=== PATIENT | female | born 1970 | race Caucasian/White ===

== ENCOUNTER 2016-08-17 11:26 | Emergency (ER) | payer OTHER ==
[~2016-08-17] VITALS: Ht 172.7 cm; Wt 86.8 kg
[~2016-08-17 11:26] MED LIST: DOCU-94 PO; PSYL55.43 PO; TOPI200T6 PO
[2016-08-17 11:33] VITALS: TEMP 36.8; Ht 172.7 cm; Wt 86.8 kg
--- NOTE | 2016-08-17 13:07 | EMERGENCY ROOM VISIT NOTE ---
ED Visit Note First contact with patient: 12:26 CHIEF COMPLAINT: Left thumb laceration HISTORY OF PRESENT ILLNESS: This 46-year-old female presents to ER with chief complaint of a laceration to her left thumb which occurred this morning when she accidentally cut into it with a knife. The patient states that the bleeding has stopped. The patient denies any numbness and tingling in her finger. The patient is unsure of her tetanus status. REVIEW OF SYSTEMS: 6 system review was performed and was negative unless stated otherwise in history of present illness. PMH: The patient is healthy; there is no significant medical or surgical history. SOCIAL HISTORY: Patient lives with her boyfriend. The patient denies any tobacco or alcohol use. PHYSICAL EXAM: Vital Signs: Were reviewed Reviewed Nurse's notes. GENERAL: 46- year-old white female appears in no acute distress. MENTAL Status: Alert and oriented 3. LEFT THUMB: There is a 8 mm superficial laceration on the palmar aspect of the proximal phalanx without any active bleeding. The wound looks clean. The edges come minimally apart with traction. EMERGENCY DEPARTMENT COURSE: The patient was evaluated. Adacel was given. The wound was cleansed with saline 3. The wound was dried and Dermabond applied. The patient was discharged home in stable condition. DIAGNOSIS: 8 mm left thumb laceration DISCHARGE INSTRUCTIONS & TREATMENT: Follow skin glue instructions. Any signs of infection, follow-up with your family doctor. Problem List Medical Problems: (1) Benign hypertension Status: Chronic (2) Seizure disorder Status: Chronic Current/Historical Medications Scheduled Topiramate (Topamax), 200 MG PO AMPM Scheduled PRN Docusate Sodium (Colace), 3 CAP PO BID PRN for Constipation Psyllium (Metamucil Powder), 1 PACK PO BID PRN for Constipation Allergies Coded Allergies: No Known Allergies (Verified , 08/17/16) Vital Signs Date Time Temp Pulse Resp B/P Pulse Ox O2 Delivery O2 Flow Rate FiO2 08/17/16 11:33 36.8 91 18 120/83 98 Room Air Departure Information Referrals Poli Strong M.D. (PCP) Patient Instructions A Signature Page, My [facility]
[2016-08-17] MEDS ORDERED: DIPHTHERIA/TETANUS/PERTUSSIS 0.5 ML SYR/VIAL IM. ONE (13:15)
[2016-08-17 13:19] VITALS: BP 122/81; PULSE 89; O2SAT 97
== END 2016-08-17 13:20 | disposition home or self-care (01) ==
LOC: C.EDB 11:27 → C.EDD 13:20
DX: S61.012A Laceration without foreign body of left thumb without damage to nail, initial encounter (principal); I10 Essential (primary) hypertension; W26.0XXA Contact with knife, initial encounter

== ENCOUNTER → 2016-08-27 | Outpatient (CLI) | payer OTHER ==
--- NOTE | 2016-08-27 13:59 | DIAGNOSTIC IMAGING REPORT ---
LEFT HIP UNILATERAL 2 VIEWS CLINICAL HISTORY: Left groin pain. COMPARISON: None FINDINGS: Alignment of the left hip is anatomic. There is no fracture or or suspicious lesion. There is no evidence of avascular necrosis of the left femoral head. Joint space is preserved. There is no significant osteophytosis. IMPRESSION: No significant abnormality of the left hip. Electronically signed by: Rahul Ayala M.D. 08/27/2016 1:58 PM Dictated Date/Time: 08/27/2016 1:57 PM
== END | disposition home or self-care (01) ==
LOC: C.RAD1850 13:43
PROVIDERS: ATTEND Nurse Practitioner
DX: R10.30 Lower abdominal pain, unspecified (principal)

== ENCOUNTER → 2016-11-24 | Outpatient (CLI) | payer OTHER ==
--- NOTE | 2016-11-25 12:47 | MAMMOGRAPHY REPORT ---
BILATERAL DIGITAL SCREENING MAMMOGRAM TOMOSYNTHESIS WITH CAD: 11/24/2016 CLINICAL HISTORY: Routine screening. Patient has no complaints. TECHNIQUE: Breast tomosynthesis in addition to standard 2D mammography was performed. Current study was also evaluated with a Computer Aided Detection (CAD) system. COMPARISON: Comparison is made to exams dated: 10/11/2015 mammogram, 10/05/2014 mammogram, 09/22/2013 m ammogram, 09/15/2011 mammogram, 09/11/2010 mammogram, and 09/10/2009 mammogram - [facility]. BREAST COMPOSITION: There are scattered areas of fibroglandular density in both breasts. FINDINGS: There is a stable benign-appearing coarse calcification in the right breast. No suspiciou s mass, architectural distortion or cluster of suspicious microcalcifications is seen. IMPRESSION: ACR BI-RADS CATEGORY 1: NEGATIVE There is no mammographic evidence of malignancy. A 1 year screening mammogram is recommended. The p atient will receive written notification of the results. Approximately 10% of breast cancers are not detected with mammography. A negative mammographic repor t should not delay biopsy if a clinically suggestive mass is present. Carlita Gold M.D. ay/:11/25/2016 07:07:24 Selvage Machine Operator: Ashlee ESPINOZA(R)(M), [facility] letter sent: Normal 1/2 BI-RADS Code: ACR BI-RADS Category 1: Negative
== END | disposition home or self-care (01) ==
LOC: C.MAMM 15:13
PROVIDERS: ATTEND Obstetrics & Gynecology
DX: Z12.31 Encounter for screening mammogram for malignant neoplasm of breast (principal)

== ENCOUNTER 2017-09-12 07:47 | Emergency (ER) | payer OTHER ==
[~2017-09-12] VITALS: Ht 172.7 cm; Wt 85.0 kg
[2017-09-12 07:51] VITALS: BP 137/84; PULSE 121; TEMP 36.5; O2SAT 99; Ht 172.7 cm; Wt 85.0 kg
[2017-09-12] MEDS ORDERED: AMOX875T PO (08:13)
[2017-09-12] MEDS ORDERED: FAMO20TA11 PO (08:19)
--- NOTE | 2017-09-12 15:55 | EMERGENCY ROOM VISIT NOTE ---
History First contact with patient: 07:58 Chief Complaint: EAR PAIN Stated Complaint: EARS THROAT History of Present Illness The patient is a 47 year old female who presents to the Emergency Room with complaints of persistent left earache and throat pain. The patient reports that she had symptoms develop 1 week ago. She was seen at a walk-in clinic and provided prescriptions for Ceftin, a steroid and famotidine. The patient reports that the medicines are not helping. She denies any significant cough, change in voice, runny nose or sinus congestion. The patient denies any prior history of recurrent ear infections. She rates her discomfort a 4 out of 10. Review of Systems 10 system review was performed and was negative except for pertinent positives and negatives as indicated in history of present illness Past Medical/Surgical History Medical Problems: (1) Benign hypertension (2) Seizure disorder Family History Blood clots Social History Smoking Status: Never Smoker Alcohol Use: none Drug Use: none Marital Status: single, in relationship Occupation Status: unemployed Current/Historical Medications Scheduled Amoxicillin & Pot Clavulanate (Augmentin 875-125 mg), 1 TAB PO BID Famotidine (Pepcid), 20 MG PO DAILY Topiramate (Topamax), 200 MG PO AMPM Physical Exam Vital Signs Date Time Temp Pulse Resp B/P (MAP) Pulse Ox O2 Delivery O2 Flow Rate FiO2 09/12/17 07:51 36.5 121 18 137/84 99 Room Air Physical Exam CONSTITUTIONAL: Healthy and well nourished. Alert and oriented X 3 with positive affect. Patient does not appear in any acute distress. HEENT: Normocephalic, atraumatic. Pupils equal, round and reactive. No facial edema noted. Examination of the right ear is normal. Examination of the left ear shows TM bulging without air-fluid levels. No peripheral erythema noted. OROPHARYNX: Minimal posterior frontal erythema without any tonsillar hypertrophy or exudates. Negative trismus. NECK: Full active range of motion without discomfort. No nuchal rigidity. LYMPHATICS: No cervical chain adenopathy noted. RESPIRATORY: Clear to auscultation bilaterally with no wheezing, crackles, rhonchi or stridor. CARDIOVASCULAR: Regular rate and rhythm with no murmurs, rubs or gallops. MUSCULOSKELETAL: Full range of motion of all joints without discomfort. INTEGUMENTARY: No rash or other significant dermatologic conditions noted. NEUROLOGIC: No focal neurologic deficits noted. Medical Decision & Procedures ED Course Patient history and physical exam were performed. Nurse's notes were reviewed. Vital signs were reviewed. At this point, I suggested that the patient follow up with ENT. The patient is concerned that there is something stuck in her throat. The patient requested an x-ray. She was advised that x-rays do not show soft tissue well, and that she would be best evaluated by ENT. She was instructed to call her PCP to see if she needs a referral. The patient was provided a prescription for Augmentin. He is welcome to return for any difficulty swallowing, shortness of breath, cough or developing fever. She was encouraged to take ibuprofen and Tylenol as needed for pain. The patient was happy with plan of care, and voiced understanding of all discharge instructions. Medical Decision Medication Reconcilliation Current Medication List: was personally reviewed by me Blood Pressure Screening Patient's blood pressure: Normal blood pressure Impression Primary Impression: Acute dysfunction of eustachian tube Departure Information Dispostion Home / Self-Care Prescriptions Amoxicillin & Pot Clavulanate (Augmentin 875-125 mg) 1 Tab Tab 1 TAB PO BID for 10 Days, #20 TAB Prov: Alex Davies PA 09/12/17 Forms HOME CARE DOCUMENTATION FORM, IMPORTANT VISIT INFORMATION Patient Instructions My [facility] Additional Instructions Complete all Augmentin antibiotics as prescribed. Ibuprofen 800 mg and/or Tylenol 1000 mg every 8 hours. You may also alternate these medications for more effective pain relief: Ibuprofen --4 HRS--> Tylenol --4 HRS--> ibuprofen --4 HRS--> Tylenol .... Follow-up with ENT (Dr. Mendes) for further reevaluation and management. Call the number on the back of your insurance card to see if you need a referral to a specialist. If you need a referral, call your family doctor for this referral. Problem Qualifiers Primary Impression: Acute dysfunction of eustachian tube Laterality: left Qualified Codes: H69.82 - Other specified disorders of eustachian tube, left ear
== END 2017-09-12 08:23 | disposition home or self-care (01) ==
LOC: C.EDB 07:50
DX: H69.82 Other specified disorders of Eustachian tube, left ear (principal); R07.0 Pain in throat; I10 Essential (primary) hypertension; G40.909 Epilepsy, unspecified, not intractable, without status epilepticus; Z82.49 Family history of ischemic heart disease and other diseases of the circulatory system

== ENCOUNTER → 2017-10-11 | Outpatient (CLI) | payer OTHER ==
[~2017-10-11] MED LIST changes: -DOCU-94 PO; +FAMO20TA11 PO; -PSYL55.43 PO
[2017-10-11 12:40] LABS: HEMATOCRIT 38.5 % (37-47); HEMOGLOBIN 13.7 g/dL (12.0-16.0); MEAN CELL VOLUME 85.2 fL (80-100); MEAN CORPUSCULAR HEMOGLOBIN 30.3 pg (25-34); MEAN CORPUSCULAR HGB CONC 35.6 g/dl (32-36); MEAN PLATELET VOLUME 11.4 fL (7.4-10.4); PLATELET COUNT 149 K/uL (130-400); RED CELL DISTRIBUTION WIDTH SD 40.4 fL (36.4-46.3); WHITE BLOOD COUNT 5.92 K/uL (4.8-10.8)
[2017-10-11 12:42] LABS: ALBUMIN 3.8 gm/dl (3.4-5.0); ALT/SGPT 26 U/L (12-78); BLOOD UREA NITROGEN 13 mg/dl (7-18); CALCIUM 9.6 mg/dl (8.5-10.1); CARBON DIOXIDE 25 mmol/L (21-32); CHOLESTEROL 180 mg/dl (0-200); CREATININE 0.78 mg/dl (0.60-1.20); GLUCOSE 80 mg/dl (70-99); POTASSIUM 3.6 mmol/L (3.5-5.1); SODIUM 140 mmol/L (136-145)
[2017-10-11 12:44] LABS: HEMOGLOBIN A1C 5.3 % (4.5-5.6)
[2017-10-11 12:46] LABS: ALKALINE PHOSPHATASE 60 U/L (45-117); AST/SGOT 19 U/L (15-37); LDL CHOLESTEROL CALCULATED 106 mg/dl; TOTAL PROTEIN 7.7 gm/dl (6.4-8.2)
== END | disposition home or self-care (01) ==
LOC: C.LABBFT 09:37
PROVIDERS: ATTEND Nurse Practitioner
DX: R73.01 Impaired fasting glucose (principal)

== ENCOUNTER 2017-11-20 14:13 | Emergency (ER) | payer OTHER ==
[~2017-11-20] VITALS: Ht 167.6 cm; Wt 85.0 kg
[~2017-11-20 14:13] MED LIST changes: -TOPI200T6 PO
[2017-11-20 14:16] VITALS: TEMP 36.5; Ht 167.6 cm; Wt 85.0 kg
[2017-11-20] MEDS ORDERED: CIPRO 0.2%/HYDROCORTISONE 1% OTIC SUSP 10 ML BTL OT STA (15:03)
[2017-11-20] MEDS ORDERED: AMOXICILLIN 500 MG CAP PO STA (15:03)
[2017-11-20] MEDS ORDERED: AMOX875T3 PO (15:22)
--- NOTE | 2017-11-20 15:24 | EMERGENCY ROOM VISIT NOTE ---
History First contact with patient: 14:53 Chief Complaint: EAR PAIN Stated Complaint: EARTS ITCHING History of Present Illness The patient is a 47 year old female who presents to the Emergency Room with complaints of severe ear pain and itching for the last several days. The patient wears hearing aids. She denies any injury to the ears. She denies any fever. She has not been taking anything [id number] for her discomfort. She denies any changes in hearing. No recent sore throat or sinus drainage. Review of Systems 6 system review negative. Please see pertinent positives in the history of present illness section. Past Medical/Surgical History Medical Problems: (1) Benign hypertension (2) Seizure disorder Family History Blood clots Social History Smoking Status: Never Smoker Alcohol Use: none Drug Use: none Marital Status: single, in relationship Occupation Status: unemployed Current/Historical Medications Scheduled Amoxicillin (Amoxil), 875 MG PO BID [place] Dextrin (Fiber Powder), 1 DOSE PO BID Nortriptyline (Pamelor), 10 MG PO HS Topiramate (Topamax), 200 MG PO AMPM Physical Exam Vital Signs Date Time Temp Pulse Resp B/P (MAP) Pulse Ox O2 Delivery O2 Flow Rate FiO2 11/20/17 15:33 94 18 114/68 98 Room Air 11/20/17 14:16 36.5 109 16 118/84 99 Room Air Physical Exam VITALS: Vitals are noted on the nurse's note and reviewed by myself. Vital signs stable. GENERAL: 47-year-old female, in no acute distress, nondiaphoretic, well- developed well-nourished. SKIN: The skin was without rashes, erythema, edema, or bruising. . HEAD: Normocephalic atraumatic. EARS: External auditory canals are erythematous and indurated bilaterally. Tympanic membranes are both bulging with effusion and erythematous left greater than right. The TMs are intact. NOSE: Patent, turbinates without inflammation or discharge. No sinus tenderness. MOUTH: Mucous membranes moist. Tonsils are not enlarged. Pharynx without erythema or exudate. Uvula midline. Airway patent. Tongue does not deviate. NECK: Supple without nuchal rigidity. Lymphadenopathy in anterior cervical chain bilaterally. No JVD. MUSCULOSKELETAL:. Strength 5/5 throughout. NEURO: Patient was alert and oriented to person place and time. Normal sensation to touch. No focal neurological deficits. Medical Decision & Procedures Medications Administered Medications (Trade) Dose Ordered Sig/Leanne Route Start Time Stop Time Status Last Admin Dose Admin Ciprofloxacin/ Hydrocortisone (Cipro Hc Otic Susp) 2 drops ONE STAT OT 11/20/17 15:03 11/20/17 15:05 DC 11/20/17 15:31 2 DROPS Amoxicillin (Amoxil Cap) 500 mg NOW STAT PO 11/20/17 15:03 11/20/17 15:05 DC 11/20/17 15:32 500 MG ED Course This patient was seen and examined She was given 1 dose of amoxicillin p.o. Cipro HC drops were applied to the ears bilaterally. Discharge instructions were reviewed, and she was discharged in good condition Medical Decision Differential diagnosis: Otitis media, otitis externa, TM perforation This patient is a 47-year-old female that presents to the emergency department with bilateral ear pain and itching for the last several days. On exam, she had otitis externa bilaterally. Her tympanic membrane, particularly the left, was significantly erythematous. The TMs were intact. , the patient will be covered for otitis externa with Cipro HC otic solution in addition to amoxicillin for otitis media. She was encouraged to try not to wear her hearing aids and keep her ears dry. She was in agreement. She will follow-up with Dr. Strong in the office next week for an ear recheck. She agrees to return with any worsening symptoms. This chart was completed in part utilizing [employer] Speech Voice Recognition software. Attempts were made to minimize the grammatical errors, random word insertions, pronoun errors and incomplete sentences. Any formal questions or concerns about the content, text or information contained within the body of this dictation should be directly addressed to the provider for clarification. Impression Primary Impression: Otitis externa Additional Impression: Otitis media Departure Information Dispostion Home / Self-Care Condition GOOD Prescriptions Amoxicillin (AMOXIL) 875 Mg Tab 875 MG PO BID, #20 TAB Prov: Ada Norton PA-C 11/20/17 Referrals Poli Strong M.D. (PCP) Patient Instructions My [facility] Additional Instructions You were evaluated in the emergency department for ear discomfort it appears that you have an infection. Please apply 2 drops to each ear twice daily for 7 days. Please DO NOT WEAR YOUR HEARING AIDS FOR AT LEAST 1 HOUR AFTER ADMINISTERING THE DROPS Please take the entire course of amoxicillin. Please take a probiotic or eat yogurt daily while on this medication. Try to keep ears dry. Follow-up with Dr. Strong later this week for a recheck You may take Tylenol 650 mg or ibuprofen 600 mg every 6 hours as needed for discomfort Please do not hesitate to return to the emergency department with any new or concerning symptoms It was a pleasure participating in your care today Problem Qualifiers
[2017-11-20] MEDS ORDERED: NORT10CA2 PO (15:32)
[2017-11-20] MEDS ORDERED: CORN1POW2 PO (15:32)
[2017-11-20 15:33] VITALS: BP 114/68; PULSE 94; O2SAT 98
[2017-11-20] MEDS ORDERED: TOPI200T6 PO (18:15)
== END 2017-11-20 15:35 | disposition home or self-care (01) ==
LOC: C.EDB 14:14 → C.EDD 15:35
DX: H60.93 Unspecified otitis externa, bilateral (principal); H66.93 Otitis media, unspecified, bilateral; I10 Essential (primary) hypertension; G40.909 Epilepsy, unspecified, not intractable, without status epilepticus

== ENCOUNTER → 2017-12-06 | Outpatient (CLI) | payer OTHER ==
[~2017-12-06] MED LIST changes: +CORN1POW2 PO; -FAMO20TA11 PO; +NORT10CA2 PO; +TOPI200T6 PO
--- NOTE | 2017-12-07 07:39 | MAMMOGRAPHY REPORT ---
BILATERAL DIGITAL SCREENING MAMMOGRAM TOMOSYNTHESIS WITH CAD: 12/06/2017 CLINICAL HISTORY: Routine screening. Patient has no complaints. TECHNIQUE: Breast tomosynthesis in addition to standard 2D mammography was performed. Current study was also evaluated with a Computer Aided Detection (CAD) system. COMPARISON: Comparison is made to exams dated: 11/24/2016 mammogram, 10/11/2015 mammogram, 10/05/2014 m ammogram, 09/22/2013 mammogram, 09/16/2012 mammogram, and 09/15/2011 mammogram - [facility]. BREAST COMPOSITION: There are scattered areas of fibroglandular density in both breasts. FINDINGS: No suspicious mass, architectural distortion or cluster of microcalcifications is seen. IMPRESSION: ACR BI-RADS CATEGORY 1: NEGATIVE There is no mammographic evidence of malignancy. A 1 year screening mammogram is recommended. The pa tient will receive written notification of the results. Approximately 10% of breast cancers are not detected with mammography. A negative mammographic report should not delay biopsy if a clinically suggestive mass is present. Carlita guaman/aleksandra:12/06/2017 16:17:10 Farm Facility Manager: Isabela ESPINOZA(R)(M), [facility] letter sent: Normal 1/2 BI-RADS Code: ACR BI-RADS Category 1: Negative
== END | disposition home or self-care (01) ==
LOC: C.MAMM 15:51
PROVIDERS: ATTEND Obstetrics & Gynecology
DX: Z12.31 Encounter for screening mammogram for malignant neoplasm of breast (principal)

== ENCOUNTER → 2017-12-06 | Outpatient (CLI) | payer OTHER | END | disposition home or self-care (01) | LOC: C.PAPS 09:52 | PROVIDERS: ATTEND Obstetrics & Gynecology | DX: Z12.4 Encounter for screening for malignant neoplasm of cervix (principal) ==

== ENCOUNTER 2020-01-31 07:39 | Observation (INO) ==
--- NOTE | 2020-01-29 14:26 | Anesthesiology Consultation ---
Date of Service January 29, 2020 Assessment & Plan (1) Encounter for pre-operative examination: Chart Review Chart Review: Acceptable Risk for Surgery and Patient NOT seen in Pre Admission Testing Per nursing assessment 01/29/20, no recent travel. 01/26/20 Covid testing= negative. Pt granddaughter does reside with patient and went to [place] over the weekend and came back 01/28/20- granddaughter did practice social distancing and wore mask.. It was discussed with Dr. Daniel- patient may proceed with surgery without additional testing. History Surgery Operation Date: 01/31/20 10:30 Proposed Procedures p Right Breast Lumpectomy with Needle Localization and with Right [place] Lymph Node Biopsy - Marin Osborne MD, FACS Height/Weight Height: 5 ft 9 in Weight: 95.254 kg Allergies Allergy/AdvReac Type Severity Reaction Status Date / Time No Known Allergies Allergy Verified 01/29/20 13:01 Medications Home Medications Medication Instructions Recorded Confirmed Last Taken docusate sodium 100 mg capsule 300 mg PO BID cap 03/08/19 01/29/20 Unknown topiramate 200 mg tablet 200 mg PO BID tab 04/02/19 01/29/20 Unknown nortriptyline 10 mg capsule 20 mg PO PM cap 01/25/20 01/29/20 Unknown multivitamin 1 tab PO QAM 01/29/20 01/29/20 Unknown psyllium husk [Fiber (psyllium 0.52 g PO QAM 01/29/20 01/29/20 Unknown husk)] Past Medical History Medical History Hearing deficit History of seizures LAST ONE 5 YRS AGO. EPILEPTIC> FOLLOWS DR. MEKA JONES WILL SEE AGAIN ON FEBRUARY 05 Lung nodule GETS CHECKED EVERY 6 MONTHS > FOLLOWS DR. TREVINO Past Family History Family History Mother Cancer Father Cardiac disorder Heart disease Denies family history of Ovarian cancer Prostate cancer Myocardial infarction Breast cancer Colorectal cancer Past Surgical History Surgical History History of colonoscopy History of hemorrhoidectomy History of tubal ligation Social History Smoking Status: Never smoker Do You Dip or Chew Tobacco: No Hx Alcohol Use: No Hx Substance Use: No substance use type: does not use Testing Laboratory Results Laboratory Tests 01/26/20 01/26/20 09:50 09:50 WBC 6.16 Hgb 14.6 Hct 43.3 Plt Count 165 Sodium 138 Potassium 3.7 Chloride 109 H Carbon Dioxide 25 BUN 11 Creatinine 0.84 Glucose 98 Electrocardiogram Date: 01/26/20 NSR with sinus arrhythmia at 91 bpm. Other Testing Chest CT 10/10/19= Several bilateral parenchymal nodules considered stable and unchanged compared to at least 2 prior studies. No new or interval findings. A 1 year follow-up is suggested.
[~2020-01-31 07:39] MED LIST changes: +CEFAZOLIN 2000MG 2,000 MG/15 ML SYR IV SCH; -CORN1POW2 PO; +LACTATED RINGER'S 1,000 ML IV SCH; -NORT10CA2 PO; -TOPI200T6 PO
--- NOTE | 2020-01-31 09:39 | Nuclear Medicine Report ---
LYMPHOSCINTIGRAPHY CLINICAL HISTORY: Right breast cancer. PROCEDURE: Using standard sterile technique, 4 intradermal periareolar and one deep injection of 0.51 7 mCi of Lymphoseek was placed in the right breast. The patient tolerated the procedure well. There w ere no immediate complications. The patient was subsequently transported to the surgical suite. No im aging was obtained at the referring physician's request. IMPRESSION: Injection of 0.517 mCi of Lymphoseek in the right breast. ACT 112: Negative or not required by law. Electronically signed by: Jignesh Zhong M.D. 01/31/2020 9:38 AM
[2020-01-31] MEDS ORDERED: ONDANSETRON INJ 2 MG/ML 2 ML VIAL ONE (09:52)
[2020-01-31] MEDS ORDERED: PROPOFOL IV EMULSION 10 MG/ML 20 ML VIAL IV ONE (09:52)
[2020-01-31] MEDS ORDERED: fentaNYL citrate 100 MCG/2 ML VIAL ONE (09:52)
[2020-01-31] MEDS ORDERED: LIDOCAINE HCL 2% 2 ML VIAL/AMP(20MG/ML) INFIL ONE (09:52)
[2020-01-31] MEDS ORDERED: DEXAMETHASONE SOD INJ 4 MG/ML VIAL ONE (09:52)
[2020-01-31] MEDS ORDERED: MIDAZOLAM HCL 1 MG/ML 2ML VIAL ONE (09:52)
[2020-01-31] MEDS ORDERED: fentaNYL citrate 100 MCG/2 ML VIAL IV PRN (09:55)
[2020-01-31] MEDS ORDERED: ePHEDrine sulfate 50 MG/ML AMP IV PRN (09:55)
[2020-01-31] MEDS ORDERED: ATROPINE SULFATE 0.1 MG/ML 10ML SYR IV PRN (09:55)
[2020-01-31] MEDS ORDERED: ONDANSETRON INJ 2 MG/ML 2 ML VIAL IV PRN ×2 (09:55→13:29)
--- NOTE | 2020-01-31 10:21 | History & Physical Bridge Note ---
Date of Service January 31, 2020 History & Physical Bridge Note I have examined the patient, reviewed the History & Physical and in the interval since the performance of the History & Physical I have noted the following changes of clinical significance: no changes noted
[2020-01-31] MEDS ORDERED: ISOSULFAN BLUE 10 MG/ML VIAL 5 ML ONE (10:43)
[2020-01-31] MEDS ORDERED: BUPIVACAINE 0.5 % 5 MG/1 ML MPF 30ML VIAL ONE (10:43)
[2020-01-31] MEDS ORDERED: METHYLENE BLUE 0.5% 10 ML VIAL ONE (10:43)
[2020-01-31] MEDS ORDERED: PHENYLEPHRINE 100MCG/ML 5ML SYR ONE (11:53)
--- NOTE | 2020-01-31 12:06 | Post Operative Brief Note ---
PG Immediate Post Op with CF Date of Surgery January 31, 2020 Pre & Post Diagnosis Operation Date: 01/31/20 10:30 Pre-Op Diagnosis: Right Breast DCIS Post-Op Diagnosis: Right Breast DCIS I identified the patient and participated in the time-out.: Yes Procedure Operation Date: 01/31/20 10:30 Actual Procedures p Right Breast Lumpectomy with Needle Localization and with Right [place] Lymph Node Biopsy(Right) - Marin Osborne MD, FACS Surgeon Marin Osborne MD, FACS Waste Salvager Kimberli Seals Estimated Blood Loss 5 Findings Consistent with Post-Op Diagnosis Specimens Specimen Description: #1. Right [place] Lymph Node A. Right breast tissue (removed from body at 1141)- wire is inferior, long silk is lateral, short silk is medial and plain suture is superior/anterior. B. Additional right superior/anterior tissue- long silk is lateral, short silk is medial and methylene blue is new margin. C. Additional right inferior/deep tissue- long silk is lateral, short silk is medial and methylene blue is new margin
[2020-01-31] MEDS ORDERED: ACETAMINOPHEN 1,000 MG/100 ML VIAL IV ONE (12:09)
--- NOTE | 2020-01-31 12:31 | Operative Report (OR) ---
DATE OF OPERATION: 01/31/2020 NAME OF OPERATION: Needle localization, right lumpectomy with sentinel lymph node biopsy. PREOPERATIVE DIAGNOSIS: Ductal carcinoma in situ of right breast. POSTOPERATIVE DIAGNOSIS: Ductal carcinoma in situ of right breast. STAFF SURGEON: Marin Osborne MD. BANDER AND CELLOPHANER MACHINE HELPER: Leroy Seals PA-C. ANESTHESIA: General. DESCRIPTION OF PROCEDURE: The patient was brought in the operating room and placed on the operating table in supine position. She had a needle in the right breast and had undergone injection for sentinel lymph node biopsy. Her right breast was prepped and draped in usual fashion. Incision was initially made in the right axilla, I did use 0.5% plain Marcaine to anesthetize the skin at both incisions. Dissection was carried down to the axilla very deep identifying the sentinel lymph node, which was sent for frozen section and found to be negative. During the frozen section, we did perform lumpectomy. The needle was inferior in the 6 o'clock position. Incision was made around the needle carrying dissection down deeply removing the tissue. The needle was inferior, long silk suture lateral, short silk suture medial and plain suture was superior/anterior. I then took additional superior/anterior tissue, which was completely around both medial and lateral in the area of the cavity and it was marked with a long silk suture lateral, short medial and methylene blue new margin. I then took additional inferior/deep tissue widely medial and lateral and it was again marked long silk suture lateral, short medial and methylene blue new margin. We did place the initial tissue in Faxitron and we did have the clip in the tissue. It was toward the anterior superior part of the cavity. At this point, both wounds were closed, deep tissue reapproximated using 2-0 plain suture and then the skin reapproximated using 4-0 nylon suture. My seed laboratory assistant helped with prepping, draping, removal of the lymph node and breast tissue and closure of the wounds. I attest to the content of the Intraoperative Record and any orders documented therein. Any exception s are noted below.
[2020-01-31] MEDS ORDERED: HYDROCODONE/ACETAMOPHEN 5/325MG TAB PO PRN ×2 (13:29)
[2020-01-31] MEDS ORDERED: MoRPHine SULFATE 4 MG/ML 1 ML CARP\\VIAL IV PRN (13:29)
[2020-01-31] MEDS ORDERED: PROMETHAZINE HCL 12.5 MG in SODIUM CHLORIDE 0.9% 50 ML IV PRN (13:29)
[2020-01-31] MEDS ORDERED: PROMETHAZINE HCL 25 MG in SODIUM CHLORIDE 0.9% 50 ML IV PRN (13:29)
[2020-01-31] MEDS ORDERED: ACETAMINOPHEN 325 MG TAB PO PRN (13:29)
[2020-01-31] MEDS ORDERED: MoRPHine SULFATE 2 MG/ML CARP IV PRN (13:29)
[2020-01-31] MEDS ORDERED: SODIUM CHLORIDE 0.9% 1000ML 1,000 ML IV SCH (13:29)
[2020-01-31] MEDS ORDERED: LORazepam 1 MG/2 ML VIAL IV PRN (13:29)
[2020-01-31] MEDS ORDERED: IBUPROFEN 600 MG TAB PO PRN (13:29)
--- NOTE | 2020-01-31 14:09 | Anesthesiology Progress Note ---
Date of Service January 31, 2020 Anesthesia Post Procedure Vital Signs Vital Signs: Temp Pulse Pulse Resp BP Pulse Ox 01/31/20 13:20 73 20 95/68 L 100 01/31/20 13:05 60 16 106/70 100 01/31/20 12:55 36.6 C 60 18 110/70 100 01/31/20 12:45 65 16 103/69 100 01/31/20 12:35 68 18 114/71 100 01/31/20 12:25 67 16 114/77 100 01/31/20 12:18 36.0 C L 69 14 114/80 100 01/31/20 09:39 36.7 C 83 18 110/81 99 Pain Intensity Right Breast: Pain Intensity: 8 Transfer of Care Handoff Completed per policy Notes Mental Status: alert / awake / arousable Patient Amnestic to Procedure: Yes Nausea / Vomiting: adequately controlled Pain: adequately controlled Airway Patency, RR, SpO2: stable & adequate BP & HR: stable & adequate Hydration State: stable & adequate Anesthetic Complications: no major complications apparent
--- NOTE | 2020-01-31 14:20 | Hospitalist Consultation ---
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 (3) Constipation: Typically takes significant doses of cholecysto be maintained (4) DVT prophylaxis: DVT prevention is early ambulation History of Present Illness Reason for Consultation: pt has a history of pseudoseizures but is on topamax, was seen post operatively for medical review, she denies any further issues or complaints and her surgical site is with little pain Attending Physician: Marin Osborne MD, FACS Allergies Allergy/AdvReac Type Severity Reaction Status Date / Time No Known Allergies Allergy Verified 01/31/20 09:35 Home Medications Home Medications Medication Instructions Recorded Confirmed Type docusate sodium 100 mg capsule 300 mg PO BID cap 03/08/19 01/31/20 History topiramate 200 mg tablet 200 mg PO BID tab 04/02/19 01/31/20 History nortriptyline 10 mg capsule 20 mg PO PM cap 01/25/20 01/31/20 History multivitamin 1 tab PO QAM 01/29/20 01/31/20 History psyllium husk [Fiber (psyllium 0.52 g PO QAM 01/29/20 01/31/20 History husk)] bismuth subsalicylate 524 mg PO QID PRN 01/31/20 01/31/20 History [Pepto-Bismol] Patient History Family History Mother Cancer Father Cardiac disorder Heart disease Denies family history of Ovarian cancer Prostate cancer Myocardial infarction Breast cancer Colorectal cancer Social History (Updated 09/01/19 @ 14:09 by Sonia Blair) Preferred Language: Liberian Communication Ability: Effective Visual Impairment: No Limitations Hearing Ability: Use of Hearing Aid Petrographer Required: No Beliefs That Will Affect Care: None marital status: Single Current Living Situation: Significant Other current occupational status: unemployed Other Information That Helps Us Care for You: No Feels Safe at Home: Yes Safety Concerns: Feels Safe At This Time Smoking Status: Never smoker Do You Dip or Chew Tobacco: No ; Second Hand Exposure: No ; Tobacco Cessation Education Requested by Patient: No Hx Alcohol Use: No Hx Substance Use: No Childhood Exposure to Second-Hand Smoke: No Dental Care, Regularly: Yes Physical Activity Frequency: Does not Exercise Review of Systems Review of Systems: Mild distress and fatigue no headache, blurry or double vision no speech or swallowing issues mild right sided chest pain, denies pressure or palpitations no shortness of breath, cough or wheezes no abdominal pain, nausea or vomiting, diarrhea or constipation no dysuria, hematuria or frequency no focal joint pain or swelling no back pain, CVA tenderness or radicular pain no bruising, bleeding or rashes no focal signs of weakness or numbness or altered sensation no complaints or anxiety or depression. Physical Exam Physical Exam: The patient appeared well nourished and normally developed. Vital signs as documented. Head exam is normocephalic atraumatic no scleral icterus Neck is without JVD, thyromegaly, or carotid bruits. Lungs are clear to auscultation, no focal loss of breath sounds Cardiac exam, Rhythm is regular.. No murmurs, rubs or gallops. Abdominal exam reveals normal bowel sounds, soft non tender, no masses Extremities are nonedematous and both pedal pulses are normal. Neurologic exam is alert and oriented, no focal loss of strength or sensation Psychologically is without concerns for anxiety or depression Results & Data Results & Data ([facility]) Vital Signs (Past 12 Hours) Vital Signs Temp Pulse Pulse Pulse Resp BP Pulse Ox 01/31/20 14:00 97.5 F L 67 16 109/73 97 01/31/20 13:29 97.5 F L 67 16 110/74 98 01/31/20 13:20 73 20 95/68 L 100 01/31/20 13:05 60 16 106/70 100 01/31/20 12:55 97.9 F 60 18 110/70 100 01/31/20 12:45 65 16 103/69 100 01/31/20 12:35 68 18 114/71 100 01/31/20 12:25 67 16 114/77 100 01/31/20 12:18 96.8 F L 69 14 114/80 100 01/31/20 09:39 98.1 F 83 18 110/81 99 PG Care Time/CCT Total # of Minutes Spent Total Time Spent with Patient: Total time spent is greater than 50% in coordination of care (as documented) at patient's floor/unit and/or counseling patient: Coding Level of Care Code 19829 Inpt Consult Level 2 Diagnoses 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
--- NOTE | 2020-01-31 14:55 | Mammography Report ---
UNILATERAL RIGHT DIGITAL DIAGNOSTIC MAMMOGRAM TOMOSYNTHESIS: 01/31/2020 CLINICAL HISTORY: Status post ultrasound-guided needle localization of the right breast. TECHNIQUE: Postprocedural right CC and ML tomosynthesis images including synthesized 2D views were ob tained. COMPARISON: Comparison is made to exams dated: 01/19/2020 mammogram, 12/19/2019 mammogram, 12/09/2018 cece mogram, 12/06/2017 mammogram, 11/24/2016 mammogram, and 01/31/2020 localization - [facility]. BREAST COMPOSITION: There are scattered areas of fibroglandular density in the right breast. FINDINGS: The localized mass and associated biopsy clip in the right 6:00 breast are located along the distal p ortion of the needle localization wire at the level of the jayne and near the tip of the needle. IMPRESSION: The localized mass and biopsy are located along the distal portion of the needle localization wire. Some breast cancers are not detected with mammography. A negative mammographic report should not sienna y biopsy if a clinically suggestive mass is present. Mary Jane Carlson M.D. ah/:01/31/2020 08:21:21 Linter Drier Operator: Breana Meraz [facility] BI-RADS Code: n/a
--- NOTE | 2020-01-31 14:55 | Mammography Report ---
SPECIMEN RIGHT BREAST: 01/31/2020 CLINICAL HISTORY: Status post right breast surgical excision. COMPARISON: Comparison is made to exams dated: 01/31/2020 localization, 01/19/2020 mammogram, 01/19/2020 ultrasound biopsy, 01/17/2020 ultrasound, and 12/19/2019 mammogram - [facility]. Findings: A radiograph was performed of the right breast surgical specimen. The localized biopsy cli p and needle localization wire are present within the specimen. The clip is located near one of the edges of the specimen. Results were discussed with Dr. Osborne, and he reports he will be obtaining add itional tissue and sending to pathology. IMPRESSION: SPECIMEN The imaged specimen contains the preoperativelylocalized biopsy clip. Mary Jane Carlson M.D. /:01/31/2020 12:34:13 Insemination Worker: OR Technologist, [facility]
--- NOTE | 2020-01-31 14:55 | Mammography Report ---
NEEDLE LOCALIZATION RIGHT BREAST: 01/31/2020 CLINICAL HISTORY: Recent ultrasound-guided core needle biopsy of a right 6:00 breast mass, with patho logy showing ductal carcinoma in situ. The patient presents for preoperative localization. PROCEDURE DESCRIPTION: With ultrasound guidance, aseptic technique, and 1% lidocaine as the local ane sthetic, the residual mass and associated biopsy clip in the right 6:00 breast was localized with a 5 cm Lu II needle. The biopsy marker clip and mass are located along the distal portion of the w katelin, centered at the jayne. The needle was left in place. The patient tolerated the procedure withou t complication. COMPARISON: Comparison is made to exams dated: 01/19/2020 mammogram, 01/19/2020 ultrasound biopsy, 020 ultrasound, 12/19/2019 mammogram, and 12/09/2018 mammogram - [facility]. IMPRESSION: NEEDLE LOCALIZATION Ultrasound-guided needle localization of the residual mass and biopsy clip in the right 6:00 breast. Mary Jane Carlson M.D. ah/:01/31/2020 08:19:19 Sandblaster Stone: Breana Meraz, [facility]
[2020-01-31 17:23] VITALS: TEMP 97.9
[2020-01-31] MEDS: CEFAZOLIN 1000MG 1,000 MG/7.5 ML SYR IV SCH (19:27)
[2020-01-31] MEDS: TOPIRAMATE 100 MG TAB PO SCH (20:38)
[2020-01-31] MEDS ORDERED: NORTRIPTYLINE HCL 10 MG CAP PO SCH (21:00)
[2020-02-01] MEDS: CEFAZOLIN 1000MG 1,000 MG/7.5 ML SYR IV SCH (03:50)
[2020-02-01 04:04] VITALS: BP 103/71; O2SAT 98
[2020-02-01] MEDS: TOPIRAMATE 100 MG TAB PO SCH (07:50)
[2020-02-01 08:45] VITALS: PULSE 70
--- NOTE | 2020-02-05 13:26 | Discharge Summary (DS) ---
PRINCIPAL DIAGNOSIS: Ductal carcinoma in situ, right breast. PROCEDURES: The patient underwent right lumpectomy with right sentinel lymph node biopsy. HISTORY OF PRESENT ILLNESS: The patient is a 49-year-old female with ductal carcinoma in situ of the right breast, brought into the hospital for definitive surgery. On 01/31/2020, she underwent needle localization right breast lumpectomy with sentinel lymph node biopsy. She tolerated it very well. She did well overnight and was felt stable for discharge on 02/01/2020, to be followed in the surgical clinic within 1-2 weeks.
--- NOTE | 2020-02-05 13:31 | Discharge Summary ---
Date of Service February 05, 2020 Principal Diagnosis right breast DCIS Discharge Exam Chest (Breasts) Additional Comments: incisions clean and dry Discharge Data Allergies Allergy/AdvReac Type Severity Reaction Status Date / Time No Known Allergies Allergy Verified 01/31/20 09:35 Consultations 01/29/20 15:23 Consult Hospitalist Routine 01/31/20 13:29 Consult Case Management - Discharge Planning Routine Consult Hospitalist Routine Procedures Performed Operation Date: 01/31/20 10:30 Actual Procedures p Right Breast Lumpectomy with Needle Localization and with Right [place] Lymph Node Biopsy(Right) - Marin Osborne MD, FACS Ordered Studies 01/31/20 breast needle loc RT Routine Hospital Course (1) 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 She was observed overnight on the surgical floor. In the morning she was tolerating diet and analgesics and was stable for discharge home. Total Time Total Time Spent Total Time Spent (In Minutes): 10 Discharge Plan Discharge Items Patient Disposition: Home - Home Health Services Reason For Visit: RIGHT BREAST DCIS W/HOSP NEEDLE LOC & NM INJ Discharge Diagnosis: right breast lumpectomy with sentinel lymph node biopsy Activity: Per Instructions section Lifting: No more than 25 pounds Lifting Comment: light activity for 2 weeks Bathing Comment: may shower starting 02/01/20 Sexual Activity: When tolerated Exercise/Sports: Wait until after follow-up appointment Exercise Comment: light activity for 2 weeks Non-emergency contact: Primary Care Provider and Surgeon Call non-emergency contact if: you have any medication questions, your symptoms worsen, your pain is not controlled, your pain is worsening, your pain is co ncerning for you, you have a fever, your temperature is above 101.5, your wound has increased redness and your wound pain has increased Follow-up/Referrals: Marin Osborne MD, FACS [Physician] - Poli Strong III, MD [Primary Care Provider] - Diet: Regular Addtl Attending Provider Instructions: SPECIAL CARE INSTRUCTIONS: * Cover incisions and change daily for comfort/drainage. * may shower * May use ibuprofen for pain as tolerated. * Expect some swelling and bruising. Call your doctor if: * Temperature above 101 degrees * Pain not relieved by pain medicine ordered * There is increased drainage or redness from any incision * You have any unanswered questions or concerns [phone]. FOLLOW UP VISIT: If not already scheduled, please call the office for a follow-up visit. OFFICE PHONE NUMBER: Dr. Osborne Office for next week- some suture removal Pending Studies at Discharge: Yes Studies:: surgical pathology Stand-Alone Forms: My [facility] Medications and DC Order Prescriptions: New hydrocodone-acetaminophen [Guinda] 5-325 mg tablet 1 - 2 tab PO Q6H PRN (Reason: pain) Qty: 30 RF: 0 Continued docusate sodium 100 mg capsule 300 mg PO BID RF: 0 nortriptyline 10 mg capsule 20 mg PO PM RF: 0 multivitamin Tablet 1 tab PO QAM RF: 0 psyllium husk [Fiber (psyllium husk)] 0.52 gram Capsule 0.52 g PO QAM RF: 0 bismuth subsalicylate [Pepto-Bismol] 262 mg/15 mL Suspension 524 mg PO QID PRN (Reason: Nausea And Vomiting) RF: 0 No Action topiramate [Topamax] 200 mg tablet 200 mg PO BID 30 Days Qty: 60 RF: 0 Discharge Orders: Discharge Order (Routine); Ordered 02/01/20 Ordered By: Marin Osborne Admission Data Admit Date/Time: 01/31/20 10:40 Attending Provider: Marin Osborne Admit Provider: Marin Osborne Primary Care Provider: Poli Strong III Other Providers: Kain Martinez Other Interventions: Discharge Summary Assessment (RN) Last Done: 02/01/20 08:44 DC Date/Time DO NOT enter until pt leaves facility: 02/01/20 09:58 Coding Level of Care Code D/C Day Management <30 mins Diagnoses 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
== END 2020-02-01 09:58 | disposition home health service (06) ==
LOC: ASU 07:39 → 3N 10:40 → INTOOBSV 10:40